=== PATIENT | female | born 1995 | race Two or more races ===

== ENCOUNTER 2019-11-05 21:23 | Emergency (ER) | payer MEDICAID, OTHER ==
[~2019-11-05] VITALS: Ht 165.1 cm; Wt 65.9 kg
[2019-11-05 21:28] VITALS: BP 148/98
[2019-11-05] MEDS ORDERED: KETOROLAC TROMETHAMINE 60 MG/2 ML VIAL IM ONE (23:00)
== END 2019-11-05 23:48 | disposition home or self-care (01) ==
LOC: EMS 21:24
DX: R07.89 Other chest pain (principal); R20.0 Anesthesia of skin; R20.2 Paresthesia of skin
CPT/HCPCS: 93005; 96372; 99283; J1885